=== PATIENT | female | born 1940 | race Caucasian/White ===

== ENCOUNTER → 2023-01-15 | Outpatient (CLI) | payer MEDICARE, OTHER ==
[2023-01-15 14:11] LABS: ALBUMIN 3.6 G/DL (3.2-5.2); BLOOD UREA NITROGEN 13 MG/DL (9-23); CALCIUM LEVEL 9.3 MG/DL (8.3-10.6); CARBON DIOXIDE LEVEL 29 MMOL/L (20-31); CHLORIDE LEVEL 104 MMOL/L (98-107); CREATININE FOR GFR 0.79 MG/DL (0.55-1.30); GLOMERULAR FILTRATION RATE > 60.0 (>32); GLUCOSE, FASTING 84 MG/DL (74-106); PHOSPHORUS LEVEL 3.2 MG/DL (2.4-5.1); POTASSIUM SERUM 4.3 MMOL/L (3.5-5.1); SODIUM LEVEL 141 MMOL/L (136-145)
== END ==
LOC: M PLALAB 11:28
PROVIDERS: ATTEND Physical Medicine & Rehabilitation
DX: M19.011 Primary osteoarthritis, right shoulder (principal)